=== PATIENT | male | born 1975 | race African-American/Black ===

== ENCOUNTER 2021-06-23 10:36 | Emergency (ER) | payer MEDICAID ==
[2021-06-23] MEDS ORDERED: Sodium Chloride 0.9% 10 ML Syringe FLUSH PRN (11:38)
[2021-06-23] MEDS ORDERED: Famotidine 20 MG/2 ML SDV IVPUSH ONE (11:38)
[2021-06-23] MEDS ORDERED: Sodium Chloride 0.9% 1,000 ML IV STA (11:38)
[2021-06-23] MEDS ORDERED: Ondansetron 4 MG/2 ML SDV IVPUSH ONE (11:38)
[2021-06-23] MEDS ORDERED: Alum Hydrox/Mag Hydrox/Simeth 30 ML, Lidocaine 2% 15 ML PO ONE ×2 (13:57)
== END 2021-06-23 15:25 | disposition home or self-care (01) ==
LOC: JD.ED 10:36
DX: R11.2 Nausea with vomiting, unspecified (principal); R19.7 Diarrhea, unspecified
CPT/HCPCS: 36415; 80053; 83690; 84484; 85025; 93005; 96374; 96375; 99284; A9270; J2405; J3490; J7030

== ENCOUNTER 2021-06-24 17:06 | Emergency (ER) | payer MEDICAID ==
[2021-06-24] MEDS ORDERED: Ondansetron 4 MG Tab.DIS PO ONE (17:30)
[2021-06-24] MEDS ORDERED: Lactated Ringers 1,000 ML IV ONE (18:49)
[2021-06-24] MEDS ORDERED: Metoclopramide 10 MG/2 ML SDV IVPUSH ONE (18:50)
== END 2021-06-24 20:45 | disposition home or self-care (01) ==
LOC: JD.ED 17:06
DX: R11.2 Nausea with vomiting, unspecified (principal); Z72.0 Tobacco use
CPT/HCPCS: 36415; 80053; 83690; 85025; 96374; 99284; A9270; J2765; J7120; 99283

== ENCOUNTER 2022-02-08 14:09 | Emergency (ER) | payer MEDICAID | END 2022-02-08 18:35 | disposition home or self-care (01) | LOC: JD.ED 14:09 | DX: N39.0 Urinary tract infection, site not specified (principal); J45.909 Unspecified asthma, uncomplicated | CPT/HCPCS: 71046; 71046-26; 81001; 87086; 99284 ==

== ENCOUNTER 2022-04-11 01:07 | Emergency (ER) | payer MEDICAID ==
[2022-04-11] MEDS ORDERED: Sodium Chloride 0.9% 1,000 ML IV ONE ×2 (02:32→04:05)
[2022-04-11] MEDS ORDERED: Iopamidol 755 Mg/ML 100 ML Bottle IVPUSH ONE (03:18)
[2022-04-11] MEDS ORDERED: Sodium Chloride 0.9% 10 ML Syringe FLUSH ONE (03:18)
[2022-04-11] MEDS ORDERED: Sodium Chloride 0.9% 100 ML IV SCH (03:30)
[2022-04-11] MEDS ORDERED: Acetaminophen 325 MG Tab PO ONE (04:08)
[2022-04-11] MEDS ORDERED: Sodium Chloride 0.9% 1,000 ML IV SCH (06:15)
== END 2022-04-11 08:43 | disposition home or self-care (01) ==
LOC: JD.ED 01:07
DX: I95.1 Orthostatic hypotension (principal); F15.10 Other stimulant abuse, uncomplicated; F17.210 Nicotine dependence, cigarettes, uncomplicated
CPT/HCPCS: 36415; 70450; 71275; 80053; 80306; 80307; 83735; 84484; 85025; 85379; 86140; 93005; 96360; 96361; 99284; A9270; J3490; J7030; Q9967; 93010

== ENCOUNTER 2023-05-27 07:40 | Emergency (ER) | payer MEDICAID ==
[2023-05-27] MEDS: Albuterol/Ipratropium 3.0-0.5 MG/3 ML Neb Soln NEB ONE (08:23)
[2023-05-27] MEDS: Ondansetron 4 MG/2 ML SDV IVPUSH ONE (08:35)
[2023-05-27] MEDS: Famotidine 20 MG/2 ML SDV IVPUSH ONE (08:37)
[2023-05-27] MEDS: Sodium Chloride 0.9% 1,000 ML IV ONE (08:40)
[2023-05-27 08:46] LABS: BASOPHILS PERCENT AUTO 0.1 % (0.0-1.0); EOSINOPHILS ABSOLUTE AUTO 0.1 K/mm3 (0.0-0.4); EOSINOPHILS PERCENT AUTO 0.2 % (0.0-6.0); HEMATOCRIT 40.6 % (42.0-52.0); HEMOGLOBIN 13.7 gm/dl (14.0-18.0); IMMATURE GRAN ABSOLUTE AUTO 0.11 K/mm3 (0.00-0.05); IMMATURE GRAN PERCENT AUTO 0.5 % (0.0-0.4); LYMPHOCYTES ABSOLUTE AUTO 2.3 K/mm3 (1.0-4.8); LYMPHOCYTES PERCENT AUTO 11.2 % (24.0-44.0); MEAN CORPUSCULAR HEMOGLOBIN 22.7 pg (28.0-32.0); MEAN CORPUSCULAR HGB CONC 33.7 g/dl (32.0-36.0); MEAN CORPUSCULAR VOLUME 67.3 fl (83.0-99.0); MONOCYTES ABSOLUTE AUTO 1.2 K/mm3 (0.0-0.8); MONOCYTES PERCENT AUTO 6.1 % (0.0-8.0); NEUTROPHILS ABSOLUTE AUTO 16.6 K/mm3 (1.8-7.7); NEUTROPHILS PERCENT AUTO 81.9 % (41.0-71.0); NRBC ABSOLUTE 0.05 (0.00-0.02); NRBC PERCENT 0.2 % (0.0-0.2); PLATELET COUNT,PLT 200 K/mm3 (150-400); RED BLOOD CELL COUNT 6.03 M/mm3 (4.52-5.90)
[2023-05-27 09:02] LABS: A/G RATIO 1.3 (1-2); ALBUMIN 3.9 g/dl (3.4-5.0); ANION GAP 16.2 (5-15); BILIRUBIN TOTAL 1.9 mg/dL (0.2-1.0); BUN/CREATININE RATIO 11.5 (14-18); CALCIUM 8.9 mg/dL (8.5-10.1); CREATININE 1.3 mg/dL (0.7-1.3); EST CRCL DRUG DOSING (CG) 64.97 mL/min; POTASSIUM,K 4.2 mEq/L (3.5-5.1); PROTEIN TOTAL,TP 6.9 g/dl (6.4-8.2)
[2023-05-27] MEDS: Aluminum Hydroxide/Magnesium Hydroxide/Simethicone Susp 30 ML Cup PO ONE (09:41)
[2023-05-27 10:28] LABS: APPEARANCE,URINE CLEAR (Clear); BILIRUBIN,URINE 1+ (Negative); COLOR,URINE DARK YELLOW (Yellow); GLUCOSE,URINE NEGATIVE (Negative); KETONES,URINE 1+ (Negative); LEUKOCYTE ESTERASE,URINE NEGATIVE (Negative); NITRITE,URINE NEGATIVE (Negative); OCCULT BLOOD,URINE NEGATIVE (Negative); PROTEIN,URINE 1+ (Negative)
[2023-05-27 10:59] LABS: BARBITURATE SCREEN,URINE NEGATIVE (CUTOFF=200); BENZODIAZEPINES SCREEN,URINE NEGATIVE (CUTOFF=150); BUPRENORPHINE SCREEN,URINE NEGATIVE (CUTOFF=10); METHADONE SCREEN, URINE NEGATIVE (CUT0FF=200); METHAMPHETAMINES SCREEN, URINE PRESUMPTIVE POSITIVE (CUTOFF=500); OXYCODONE SCREEN,URINE NEGATIVE (CUT0FF=100); THC SCREEN,URINE 20 NG/ML PRESUMPTIVE POSITIVE (CUTOFF=50)
[2023-05-27 11:21] LABS: AMPHETAMINES SCREEN, URINE PRESUMPTIVE POSITIVE (CUTOFF=500)
[2023-05-27 11:35] LABS: BACTERIA,URINE RARE /hpf (FEW); EPITHELIAL CELLS,URINE 0-5 /hpf (0-5); MUCUS,URINE NOT SEEN /hpf (FEW); RBC,URINE 0-5 /hpf (0-5); WBC,URINE 0-5 /hpf (0-5)
== END 2023-05-27 12:10 | disposition home or self-care (01) ==
LOC: JD.ED 07:40
DX: J45.901 Unspecified asthma with (acute) exacerbation (principal); F15.10 Other stimulant abuse, uncomplicated; K21.9 Gastro-esophageal reflux disease without esophagitis; F17.210 Nicotine dependence, cigarettes, uncomplicated; Z79.52 Long term (current) use of systemic steroids; Z79.899 Other long term (current) drug therapy
CPT/HCPCS: 36415; 71046; 80053; 80306; 81001; 83690; 84484; 85025; 93005; 94640; 96361; 96374; 96375; 99285; A9270; J2405; J3490; J7030; J7620-GY

== ENCOUNTER 2024-06-06 08:49 | Emergency (ER) | payer MEDICAID ==
[2024-06-06] MEDS ORDERED: Sodium Chloride 0.9% 10 ML Syringe FLUSH PRN (09:18)
[2024-06-06] MEDS: Sodium Chloride 0.9% 1,000 ML IV STA (09:39)
[2024-06-06] MEDS: Ondansetron 4 MG/2 ML SDV IVPUSH ONE (09:39)
[2024-06-06] MEDS: Sodium Chloride 0.9% 10 ML Syringe FLUSH PRN (09:39)
[2024-06-06] MEDS: Famotidine 20 MG/2 ML SDV IVPUSH ONE (09:43)
[2024-06-06 09:47] LABS: BASOPHILS ABSOLUTE AUTO 0.1 K/mm3 (0.0-0.2); BASOPHILS PERCENT AUTO 0.6 % (0.0-1.0); EOSINOPHILS PERCENT AUTO 0.3 % (0.0-6.0); HEMATOCRIT 43.8 % (42.0-52.0); HEMOGLOBIN 14.5 gm/dl (14.0-18.0); IMMATURE GRAN ABSOLUTE AUTO 0.08 K/mm3 (0.00-0.05); IMMATURE GRAN PERCENT AUTO 0.6 % (0.0-0.4); LYMPHOCYTES ABSOLUTE AUTO 2.8 K/mm3 (1.0-4.8); LYMPHOCYTES PERCENT AUTO 22.1 % (24.0-44.0); MEAN CORPUSCULAR HEMOGLOBIN 22.4 pg (28.0-32.0); MEAN CORPUSCULAR HGB CONC 33.1 g/dl (32.0-36.0); MEAN CORPUSCULAR VOLUME 67.8 fl (83.0-99.0); MONOCYTES ABSOLUTE AUTO 1.3 K/mm3 (0.0-0.8); MONOCYTES PERCENT AUTO 9.9 % (0.0-8.0); NEUTROPHILS ABSOLUTE AUTO 8.4 K/mm3 (1.8-7.7); NEUTROPHILS PERCENT AUTO 66.5 % (41.0-71.0); NRBC ABSOLUTE 0.02 (0.00-0.02); NRBC PERCENT 0.2 % (0.0-0.2); PLATELET COUNT,PLT 196 K/mm3 (150-400); RED BLOOD CELL COUNT 6.46 M/mm3 (4.52-5.90); WHITE BLOOD CELL COUNT,WBC 12.64 K/mm3 (3.9-11.3)
[2024-06-06 10:17] LABS: A/G RATIO 1.1 (1-2); ALBUMIN 3.4 g/dl (3.4-5.0); BILIRUBIN TOTAL 1.3 mg/dL (0.2-1.0); CALCIUM 8.6 mg/dL (8.5-10.1); CREATININE 1.5 mg/dL (0.7-1.3); EST CRCL DRUG DOSING (CG) 47.94 mL/min; PROTEIN TOTAL,TP 6.4 g/dl (6.4-8.2)
[2024-06-06] MEDS: Iopamidol 612 MG/ML 100 ML Bottle IVPUSH ONE (10:33)
[2024-06-06 10:55] LABS: SLIDE REVIEW ABNORMAL SMEAR
[2024-06-06 11:16] LABS: APPEARANCE,URINE CLEAR (Clear); BILIRUBIN,URINE NEGATIVE (Negative); COLOR,URINE YELLOW (Yellow); GLUCOSE,URINE NEGATIVE (Negative); KETONES,URINE TRACE (Negative); LEUKOCYTE ESTERASE,URINE NEGATIVE (Negative); NITRITE,URINE NEGATIVE (Negative); OCCULT BLOOD,URINE NEGATIVE (Negative); PH,URINE 8.5 (5.0-8.0); PROTEIN,URINE TRACE (Negative); UROBILINOGEN,URINE >=8.0 (0.2-1.0)
[2024-06-06 11:22] LABS: RBC,URINE 0-5 /hpf (0-5)
[2024-06-06 11:23] LABS: BACTERIA,URINE RARE /hpf (FEW); EPITHELIAL CELLS,URINE 0-5 /hpf (0-5); MUCUS,URINE RARE /hpf (FEW); WBC,URINE 0-5 /hpf (0-5)
== END 2024-06-06 12:35 | disposition home or self-care (01) ==
LOC: JD.ED 08:49
DX: A08.4 Viral intestinal infection, unspecified (principal); R06.6 Hiccough; J45.909 Unspecified asthma, uncomplicated; Z79.899 Other long term (current) drug therapy
CPT/HCPCS: 36415; 71045; 71045-26; 74177; 74177-26; 80053; 81001; 83690; 83735; 84484; 85025; 93005; 96361; 96374; 96375; 99284-25; J2405; J7030; Q9967